=== PATIENT | male | born 1960 | race Caucasian/White ===

== ENCOUNTER 2024-06-06 07:00 | Day surgery (SDC) | payer OTHER ==
[~2024-06-06] VITALS: Ht 190.5 cm; Wt 105.0 kg
[~2024-06-06 07:00] MED LIST: AMLO10 PO; Acerola C500 MG PO; Aspir 8181 MG PO; FERSU300 PO; LISI10 PO; Norco 10-325 T1 EACH PO; PROTONIX4010 PO; SILD25T PO; VERA120 PO
[2024-06-06] MEDS ORDERED: NS 1,000 ML IV ONE (07:07)
[2024-06-06] MEDS ORDERED: NS 500 ML IV ONE (07:07)
[2024-06-06] MEDS ORDERED: Heparin Sodium 1000 Units/ML 10ML MDV ONE (07:07)
[2024-06-06] MEDS ORDERED: Nitroglycerin 2 MG/20 ML BTL ONE (07:08)
[2024-06-06 07:46] LABS: BASOPHILS ABSOLUTE AUTO 0.09 K/mm3 (0.00-0.23); BASOPHILS PERCENT AUTO 1 % (0-2); EOSINOPHILS ABSOLUTE AUTO 0.19 K/mm3 (0.00-0.68); EOSINOPHILS PERCENT AUTO 3 % (0-6); Hematocrit 34.6 % (37.0-53.0); Hemoglobin 10.8 g/dL (13.5-17.5); IMMATURE GRAN ABSOLUTE AUTO 0.01 K/mm3 (0.00-0.10); IMMATURE GRAN PERCENT AUTO 0 % (0-1); LYMPHOCYTES ABSOLUTE AUTO 2.29 K/mm3 (0.84-5.20); LYMPHOCYTES PERCENT AUTO 31 % (21-46); MONOCYTES PERCENT AUTO 11 % (4-13); Mean Corpuscular HGB 25.7 pg (26.0-34.0); Mean Corpuscular HGB Conc 31.2 g/dL (31.5-36.5); Mean Corpuscular Volume 82 fL (80-100); Mean Platelet Volume 9.4 fL (9.1-12.4); NEUTROPHILS ABSOLUTE AUTO 4.02 K/mm3 (1.96-9.15); NEUTROPHILS PERCENT AUTO 54 % (41-73); Platelet Count 421 K/mm3 (150-400); RDW Coefficient Variation 14.6 % (11.7-14.2); RDW Standard Deviation 44.2 fL (35.1-46.3)
[2024-06-06 08:00] LABS: Bun/Creatinine Ratio 20.9 (12.0-20.0); Calcium, Blood 9.6 mg/dL (8.5-10.1); Creatinine, Blood 0.91 mg/dL (0.60-1.20); Potassium, Blood 4.3 mmol/L (3.5-5.5)
[2024-06-06 08:05] LABS: Prothrombin Time Results 10.7 Sec (9.7-11.5)
== END 2024-06-06 09:56 | disposition home or self-care (01) ==
LOC: MHTC 07:00
PROVIDERS: Student in an Organized Health Care Education/Training Program
DX: I73.9 Peripheral vascular disease, unspecified (principal); Z53.9 Procedure and treatment not carried out, unspecified reason
CPT/HCPCS: 80048; 85025; 85610; J1644; J7030; J7050

== ENCOUNTER 2024-06-19 07:03 | Day surgery (SDC) | payer OTHER ==
[2024-06-19] VITALS (9 sets, daily range): BP systolic 116–147; BP diastolic 69–88
[~2024-06-19] VITALS: Ht 190.5 cm; Wt 105.0 kg
[2024-06-19] MEDS ORDERED: NS 500 ML IV ONE ×2 (07:17→09:54)
[2024-06-19] MEDS ORDERED: Heparin Sodium 1000 Units/ML 10ML MDV ONE ×3 (07:18→09:54)
[2024-06-19] MEDS ORDERED: NS 1,000 ML IV ONE ×3 (07:18→11:08)
[2024-06-19] MEDS ORDERED: Nitroglycerin 2 MG/20 ML BTL ONE (07:51)
[2024-06-19] MEDS ORDERED: Verapamil HCL 2.5 MG/ML 2ML Injection ONE (07:51)
[2024-06-19] MEDS ORDERED: Midazolam HCl 1MG / ML 2ML Vial ONE ×4 (07:54→11:07)
[2024-06-19] MEDS ORDERED: FentaNYL Citrate 50 MCG/ML 2 ML Injection ONE ×4 (07:55→11:08)
[2024-06-19] MEDS ORDERED: HydrALAZINE HCl 20 MG / ML 1ML Vial ONE ×2 (11:43→12:12)
[2024-06-19] MEDS ORDERED: Protamine Sulfate 50 MG Amp ONE (11:58)
[2024-06-19] MEDS ORDERED: Lidocaine 2% Jelly Uro-Jet ONE (12:04)
[2024-06-19] MEDS ORDERED: Labetalol HCL 5 MG/ML 4ML Injection (Single Dose) ONE (12:05)
[2024-06-19] MEDS ORDERED: Clopidogrel Bisulfate 300 MG Cap ONE (12:18)
[2024-06-19] MEDS ORDERED: Aspirin 81 MG Chew ONE (12:18)
--- NOTE | 2024-06-19 13:15 | NUR ---
ASSUMED CARE OF PT POST PROCEDURE. PT AWAKE AND CONVERSING APPORPIATELY; DENIES PAIN POST PROCEDURE. MONITOR SR 90'S, B/P 145/81, SPO2 98% RA. R BRACHIAL SITE NO SWELLING/HEMATOMA, TEGADERM DRSG INTAC; ARM IMMOBILIZER IN PLACE, RUE POSITIVE PLEUTH. PT HAS FC DRAINING CLR YELLOW URINE.
--- NOTE | 2024-06-19 15:05 | NUR ---
FC REMOVED, INTACT.
[2024-06-19] MEDS ORDERED: CLOP75 PO (15:14)
--- NOTE | 2024-06-19 15:45 | NUR ---
PT VOIDED SMALL AMT YELLOW URINE IN URINAL.
--- NOTE | 2024-06-19 16:00 | NUR ---
PT DRESSED SELF WITHOUT ISSUE, SITE UNCHANGED; WRIST IMMOBILZIER IN PLACE, IV REMOVED X 2-CANNULA INTACT X 2.
--- NOTE | 2024-06-19 16:03 | NUR ---
PT RECEIVED DISCHARGE INSTRUCTIONS, MED LIST AND AFTER CARE INSTRUCTIONS; VERBALIZED GOOD UNDERSTANDING. PT GOING TO [facility]BO VIA TAXI. PT TRANSFERRED TO ENTRANCE VIA W/C, CONDITION STABLE.
== END 2024-06-19 16:03 | disposition home or self-care (01) ==
LOC: MHTC 07:03
DX: I74.5 Embolism and thrombosis of iliac artery (principal); I74.3 Embolism and thrombosis of arteries of the lower extremities; I73.9 Peripheral vascular disease, unspecified; E78.5 Hyperlipidemia, unspecified; Z79.82 Long term (current) use of aspirin; Z79.899 Other long term (current) drug therapy; Z88.8 Allergy status to other drugs, medicaments and biological substances
CPT/HCPCS: 37252; 75625; 75710; 75774; 76937; 85347; 99152; 99153; A9270; C1725; C1753; C1769; C1874; C1887; C1894; C9765; J0360; J1644; J2250; J2720; J3010; J7030; J7040; J7050; Q9967